=== PATIENT | female | born 1990 | race Caucasian/White ===

== ENCOUNTER 2019-07-25 16:15 | Emergency (ER) | payer OTHER, SELFPAY ==
[2019-07-25 16:48] VITALS: BP 122/66; PULSE 80; RESP 16; TEMP 36.6; O2SAT 100
--- NOTE | 2019-07-25 17:40 | ED.URI ---
HPI - URI/Sore Throat General Chief Complaint: Upper Respiratory Infection Stated Complaint: sinus infection and migraine Time Seen by Provider: 07/25/19 17:32 Source: patient and RN notes reviewed Mode of arrival: ambulatory Limitations: no limitations History of Present Illness HPI Narrative: Patient presents today with a 2-day history of sinus pressure, frontal headache, postnasal drip with white/clear nasal drainage. Denies shortness of breath, fever, cough. No history of asthma or COPD. Currently rates her headache 6/10 and has tried no medication for symptoms prior to arrival. She is a non-smoker. She did receive flu vaccine. MD elicited complaint: nasal congestion Related Data Home Medications Medication Instructions Recorded Confirmed dicyclomine 20 mg PO QID 07/25/19 07/25/19 norethindrone-e.estradiol-iron 1 tablet PO DAILY PRN 07/25/19 07/25/19 [06/27 (28)] Allergies Allergy/AdvReac Type Severity Reaction Status Date / Time No Known Allergies Allergy Verified 07/25/19 17:14 Review of Systems Review of Systems: Narrative: CONSTITUTIONAL: Denies body aches, fever, chills, or sweats. EYES: Denies visual changes, redness, or discharge. ENT: Denies rhinorrhea, sore throat, or otalgia.+Nasal congestion, sinus pressure, Postnasal drip CARDIOVASCULAR: Denies chest pain, palpitations, or edema. RESPIRATORY: Denies cough or dyspnea. GASTROINTESTINAL: Denies abdominal pain, nausea, vomiting, or diarrhea. GENITOURINARY: Denies dysuria or hematuria. SKIN: Denies rash, itching, or wounds. MUSCULOSKELETAL: Denies back pain, joint pain, or myalgia. NEUROLOGIC: Denies numbness, tingling, or weakness.+Headache PSYCH: Denies depression or anxiety. PMFSH Comments At time of signature, I have reviewed and agree with nursing past medical, surgical, social and family history unless otherwise noted. Please see nursing chart for further information. There is no relevant family history pertinent to the presenting complaint Exam Narrative: Exam Narrative: GENERAL: Well-appearing, well-nourished, and in no acute distress. HEAD: Normocephalic, atraumatic. EYES: EOMI. No redness or drainage. Conjunctivae normal. ENT: Mucous membranes pink and moist. Nares Congested. No rhinorrhea. TMs normal bilaterally. Throat normal. Uvula midline. NECK: Normal AROM. Supple. No lymphadenopathy. CHEST: No respiratory distress. Clear to auscultation. HEART: Regular rate and rhythm. No murmur appreciated. Normal peripheral pulses. EXTREMITIES: Normal range of motion. No edema. SKIN: Warm, dry, no rash. NEURO: No focal deficits. Alert and oriented x3. Gait steady. PSYCH: Normal affect. No signs of depression or anxiety. Course Vital Signs Vital signs: Vital Signs Temperature 97.9 F 07/25/19 16:48 Pulse Rate 80 07/25/19 16:48 Respiratory Rate 16 07/25/19 16:48 Blood Pressure 122/66 07/25/19 16:48 Pulse Oximetry 100 07/25/19 16:48 Temperature 97.9 F 07/25/19 16:48 Pulse Rate 80 07/25/19 16:48 Respiratory Rate 16 07/25/19 16:48 Blood Pressure 122/66 07/25/19 16:48 Pulse Oximetry 100 07/25/19 16:48 Reviewed. Pt has been instructed to follow up with her PCP regarding her elevated blood pressure today. MDM - URI/Sore Throat Differential Diagnosis Differential diagnosis: Likely upper respiratory infection, otitis media, sinusitis and viral infection Critical Care Time Critical Care Time Critical Care Time: No Discharge Plan Discharge Clinical Impression: Upper respiratory infection Qualifiers: URI type: unspecified URI Qualified Code(s): J06.9 - Acute upper respiratory infection, unspecified Patient Disposition: Home, Self-Care Condition: Stable Instructions: Upper Respiratory Infection (DC) Additional Instructions: Your symptoms are likely due to a viral illness, which is not treated with antibiotics. Virus symptoms can last for up to 10-14 days. Take Aleve or ib
== END 2019-07-25 17:45 | disposition home or self-care (01) ==
PROVIDERS: Emergency Provider Nurse Practitioner
DX: J06.9 Acute upper respiratory infection, unspecified (principal)
CPT/HCPCS: 99213; G0463

== ENCOUNTER 2019-08-17 18:59 | Emergency (ER) | payer OTHER, SELFPAY ==
[2019-08-17 19:10] VITALS: BP 126/72; PULSE 48; RESP 16; TEMP 37.3; O2SAT 100
--- NOTE | 2019-08-17 19:24 | ED.URI ---
HPI - URI/Sore Throat General Chief Complaint: Upper Respiratory Infection Stated Complaint: sore throat Time Seen by Provider: 08/17/19 19:24 Source: patient and family History of Present Illness HPI Narrative: Patient presents with sinus drainage congestion bilateral ear pressure and sore throat for the past 2 days. No trouble swallowing no drooling. Patient states she has not taken thing [id number] for symptoms patient states she is a normally healthy individual. MD elicited complaint: sore throat and nasal congestion Related Data Home Medications Medication Instructions Recorded Confirmed norethindrone-e.estradiol-iron 1 tablet PO DAILY PRN 07/25/19 08/17/19 [06/27 (28)] Allergies Allergy/AdvReac Type Severity Reaction Status Date / Time No Known Allergies Allergy Verified 07/25/19 17:14 Review of Systems Review of Systems: Narrative: CONSTITUTIONAL: Denies chills, or sweats. Reports fever and generalized body aches EYES: Denies visual changes, redness, or discharge. ENT: Denies otalgia. Reports nasal congestion runny nose and sore throat CARDIOVASCULAR: Denies chest pain, palpitations, or edema. RESPIRATORY: Denies dyspnea. Reports occasional cough GASTROINTESTINAL: Denies abdominal pain, nausea, vomiting, or diarrhea. GENITOURINARY: Denies dysuria or hematuria. SKIN: Denies rash or itching. MUSCULOSKELETAL: Denies back pain, joint pain, or myalgia. Reports generalized body aches NEUROLOGIC: Denies headache, numbness, or weakness. PSYCHIATRIC: Denies anxiety or depression. PMFSH Comments At time of signature, agree with nursing past medical, surgical, social and family history. There is no relevant family history pertinent to the presenting complaint Exam Narrative: Exam Narrative: The patient is a well-developed, well-nourished in no acute distress. SKIN: Skin is warm and dry without erythema, swelling or exudate. There is good turgor. No tenting. HEAD: Atraumatic. Normocephalic. No temporal or scalp tenderness. EYES: Moist and bright. Sclera and conjunctivae normal. No discharge. PERRLA. Extraocular motions intact. Gross visual acuity intact. EARS: Pinna is normal shape and contour. Clear external auditory canals. TM pearly castillo with good cone of light, no erythema or suppuration. Bilateral cerumen noted no gross hearing deficit. NOSE: pink, moist mucosa with good air movement. Clear rhinorrhea without nasal flaring. Septum midline. Mouth: moist mucous membranes. THROAT; mild erythema noted to posterior oropharynx with moderate postnasal drainage. Without exudate or ulceration.. Uvula midline. Normal movement of soft palate. NECK: Supple and nontender with full range of motion without discomfort. No meningeal signs. LUNGS: Equal and bilateral breath sounds without wheezes, rales or rhonchi. CHEST: The chest wall is without retractions or use of accessory muscles. HEART: Has a regular rate and rhythm without murmur, gallops, click or rub. ABDOMEN: Soft, nontender with positive active bowel sounds. No rebound tenderness. EXTREMITIES: Without cyanosis, clubbing or edema. Equal 2+ distal pulses and 2 second capillary refill noted. NEUROLOGIC: alert, active, . The patient moves all extremities with normal muscle strength. Normal muscle tone is noted. Normal coordination is noted. NO focal neurological findings noted. Course Vital Signs Vital signs: Vital Signs Temperature 37.3 C 08/17/19 19:10 Pulse Rate 48 L 08/17/19 19:10 Respiratory Rate 16 08/17/19 19:10 Blood Pressure 126/72 08/17/19 19:10 Pulse Oximetry 100 08/17/19 19:10 Temperature 37.3 C 08/17/19 19:10 Pulse Rate 48 L 08/17/19 19:10 Respiratory Rate 16 08/17/19 19:10 Blood Pressure 126/72 08/17/19 19:10 Pulse Oximetry 100 08/17/19 19:10 PULSE RECHECKED MANUALLY 68 AND REGULAR MDM - URI/Sore Throat Differential Diagnosis Differential diagnosis: Likely upper respiratory infection, otitis media,
[2019-08-17 19:40] VITALS: PULSE 58
== END 2019-08-17 19:40 | disposition home or self-care (01) ==
PROVIDERS: Emergency Provider Nurse Practitioner Family
DX: J02.9 Acute pharyngitis, unspecified (principal)
CPT/HCPCS: 87081; 87880; 99213; G0463

== ENCOUNTER 2020-03-28 09:15 | Emergency (ER) | payer OTHER, SELFPAY ==
[2020-03-28 09:19] VITALS: BP 111/66; PULSE 69; RESP 16; TEMP 37.1; O2SAT 99
--- NOTE | 2020-03-28 09:47 | ED.URI ---
HPI - URI/Sore Throat General Chief Complaint: Upper Respiratory Infection Stated Complaint: sore throat/rib pain/body aches/cough/runny nose Time Seen by Provider: 03/28/20 09:47 Source: patient History of Present Illness HPI Narrative: Patient presents with runny nose nasal congestion, scratchy throat, body aches, increased fatigue. Patient states her symptoms came out of the blue yesterday. Patient denies any shortness of breath no chest pain. Related Data Home Medications Medication Instructions Recorded Confirmed norethindrone-e.estradiol-iron 1 tablet PO DAILY PRN 07/25/19 03/28/20 [06/27 (28)] Allergies Allergy/AdvReac Type Severity Reaction Status Date / Time No Known Allergies Allergy Verified 03/28/20 09:37 Review of Systems Review of Systems: Narrative: CONSTITUTIONAL: Denies chills, or sweats. Reports fever and generalized body aches EYES: Denies visual changes, redness, or discharge. ENT: Denies otalgia. Reports nasal congestion runny nose and sore throat CARDIOVASCULAR: Denies chest pain, palpitations, or edema. RESPIRATORY: Denies dyspnea. Reports occasional cough GASTROINTESTINAL: Denies abdominal pain, nausea, vomiting, or diarrhea. GENITOURINARY: Denies dysuria or hematuria. SKIN: Denies rash or itching. MUSCULOSKELETAL: Denies back pain, joint pain, or myalgia. Reports generalized body aches NEUROLOGIC: Denies headache, numbness, or weakness. PSYCHIATRIC: Denies anxiety or depression. PMFSH Comments At time of signature, agree with nursing past medical, surgical, social and family history. There is no relevant family history pertinent to the presenting complaint Exam Narrative: Exam Narrative: The patient is a well-developed, well-nourished in no acute distress. SKIN: Skin is warm and dry without erythema, swelling or exudate. There is good turgor. No tenting. HEAD: Atraumatic. Normocephalic. No temporal or scalp tenderness. EYES: Moist and bright. Sclera and conjunctivae normal. No discharge. PERRLA. Extraocular motions intact. Gross visual acuity intact. EARS: Pinna is normal shape and contour. Clear external auditory canals. TM pearly castillo with good cone of light, no erythema or suppuration. Bilateral cerumen noted no gross hearing deficit. NOSE: pink, moist mucosa with good air movement. Clear rhinorrhea without nasal flaring. Septum midline. Mouth: moist mucous membranes. THROAT; mild erythema noted to posterior oropharynx with moderate postnasal drainage. Without exudate or ulceration.. Uvula midline. Normal movement of soft palate. NECK: Supple and nontender with full range of motion without discomfort. No meningeal signs. LUNGS: Equal and bilateral breath sounds without wheezes, rales or rhonchi. CHEST: The chest wall is without retractions or use of accessory muscles. HEART: Has a regular rate and rhythm without murmur, gallops, click or rub. ABDOMEN: Soft, nontender with positive active bowel sounds. No rebound tenderness. EXTREMITIES: Without cyanosis, clubbing or edema. Equal 2+ distal pulses and 2 second capillary refill noted. NEUROLOGIC: alert, active, . The patient moves all extremities with normal muscle strength. Normal muscle tone is noted. Normal coordination is noted. NO focal neurological findings noted. Course Vital Signs Vital signs: Vital Signs Temperature 37.1 C 03/28/20 09:19 Pulse Rate 69 03/28/20 09:19 Respiratory Rate 16 03/28/20 09:19 Blood Pressure 111/66 03/28/20 09:19 Pulse Oximetry 99 03/28/20 09:19 Temperature 37.1 C 03/28/20 09:19 Pulse Rate 69 03/28/20 09:19 Respiratory Rate 16 03/28/20 09:19 Blood Pressure 111/66 03/28/20 09:19 Pulse Oximetry 99 03/28/20 09:19 MDM - URI/Sore Throat Differential Diagnosis Differential diagnosis: Likely upper respiratory infection, croup, otitis media, sinusitis, viral infection, bronchitis, influenza, pharyngitis and other (COVID-19) Critical Care Time Critical
== END 2020-03-28 10:00 | disposition home or self-care (01) ==
PROVIDERS: Emergency Provider Nurse Practitioner Family; PCP Nurse Practitioner Adult Health
DX: J06.9 Acute upper respiratory infection, unspecified (principal); Z20.828 Contact with and (suspected) exposure to other viral communicable diseases
CPT/HCPCS: 99211; G0463

== ENCOUNTER 2020-03-29 06:53 | Outpatient (NON) | payer OTHER, SELFPAY ==
[2020-03-29 21:43] LABS: SARS-CoV-2 RNA PCR Negative
== END 2020-03-29 06:54 ==
PROVIDERS: Visit Provider Nurse Practitioner Family
DX: Z20.828 Contact with and (suspected) exposure to other viral communicable diseases (principal)
CPT/HCPCS: 87635; C9803; U0003

== ENCOUNTER 2020-10-04 14:25 | Emergency (ER) | payer OTHER, SELFPAY ==
[2020-10-04 14:30] VITALS: BP 110/60; PULSE 16; RESP 16; TEMP 37.3; O2SAT 100
--- NOTE | 2020-10-04 14:31 | ED.URI ---
HPI - URI/Sore Throat General Chief Complaint: Upper Respiratory Infection Stated Complaint: sore throat headache Time Seen by Provider: 10/04/20 14:31 Source: patient and RN notes reviewed History of Present Illness HPI Narrative: Patient is a 30-year-old female who presents the urgent care with complaints of sore throat and intermittent headaches. Patient states that she woke up at 6 AM with a severe sore throat and painful swallowing. Patient has not taken anything [id number] for her symptoms. Denies of any fever, nausea, vomiting, exposure to strep, flu or Covid. Patient states that she has an [id number] child and wants to make sure that she does not have strep . No other acute complaints. No acute distress noted. Patient aware of the plan of care. Some parts of this dictation were generated by voice recognition software and may contain typographical and/or grammatical inaccuracies. Related Data Home Medications Medication Instructions Recorded Confirmed citalopram 20 mg PO DAILY 10/04/20 10/04/20 norethindrone-e.estradiol-iron 1 tablet PO DAILY 10/04/20 10/04/20 [[place]uro[place] Fe 1-20 (28)] Allergies Allergy/AdvReac Type Severity Reaction Status Date / Time No Known Allergies Allergy Verified 10/04/20 14:38 Review of Systems Review of Systems: Narrative: CONSTITUTIONAL: Denies fever, chills, or sweats. EYES: Denies visual changes, redness, or discharge. ENT: Reports of sore throat CARDIOVASCULAR: Denies chest pain, palpitations, or edema. RESPIRATORY: Denies cough or dyspnea. GASTROINTESTINAL: Denies abdominal pain, nausea, vomiting, or diarrhea. GENITOURINARY: Denies dysuria or hematuria. SKIN: Denies rash or itching. MUSCULOSKELETAL: Denies back pain, joint pain, or myalgia. NEUROLOGIC: Reports of intermittent headache All other systems reviewed are negative, except as documented in HPI. PMFSH Comments At the time of my signature, I reviewed and agree with the nursing past medical, surgical, social, and family history. There is no relevant family history pertinent to the patient complaint. Exam Narrative: Exam Narrative: GENERAL: This is a well-nourished, well-developed patient, in no apparent distress. HEAD: normocephalic, atraumatic. EYES: PERRL. Sclera clear/white. Vision is grossly intact. EARS: External ears normal, auditory canals clear and without drainage, TMs normal without perforation. Hearing grossly intact. NOSE: External nose normal with no obvious nasal discharge, nares without redness, no rhinorrhea. THROAT: Mucous membranes moist, mild to moderate erythema noted posterior oropharynx with mild left tonsillar erythema/edema without exudate or ulceration NECK: Neck supple, non-tender without lymphadenopathy CARDIOVASCULAR: Regular rate and rhythm without murmurs, gallops, or rubs. RESPIRATORY: Clear to auscultation. Breath sounds equal bilaterally. No wheezes, rales, or rhonchi. SKIN: warm, intact with no suspicious lesions or rash, good texture and turgor. NEURO: awake, alert, and oriented to person, place and time. There were no obvious focal neurologic abnormalities. EXTREMITIES: No clubbing, cyanosis, or edema. Course Vital Signs Vital signs: Vital Signs Temperature 99.2 F 10/04/20 14:30 Pulse Rate 16 L 10/04/20 14:30 Respiratory Rate 16 10/04/20 14:30 Blood Pressure 110/60 10/04/20 14:30 Pulse Oximetry 100 10/04/20 14:30 Temperature 99.2 F 10/04/20 14:30 Pulse Rate 16 L 10/04/20 14:30 Respiratory Rate 16 10/04/20 14:30 Blood Pressure 110/60 10/04/20 14:30 Pulse Oximetry 100 10/04/20 14:30 Reviewed MDM - URI/Sore Throat MDM Narrative Medical decision making narrative: Reviewed lab results with the patient. She is aware that strep swab was negative. Educated patient on culture we will call within 72 hours if culture is positive and antibiotics are necessary. Advised the patient to use an [id number] antihistamine such as Claritin o
== END 2020-10-04 14:54 | disposition home or self-care (01) ==
PROVIDERS: Emergency Provider Nurse Practitioner Family; PCP Nurse Practitioner Adult Health
DX: J02.9 Acute pharyngitis, unspecified (principal); F41.9 Anxiety disorder, unspecified
CPT/HCPCS: 87081; 87880; 99213; G0463

== ENCOUNTER 2021-12-30 09:40 | Emergency (ER) | payer OTHER, SELFPAY ==
[2021-12-30 09:46] VITALS: BP 100/59; PULSE 58; RESP 16; TEMP 36.9; O2SAT 100
--- NOTE | 2021-12-30 10:59 | ED.URI ---
HPI - URI/Sore Throat General Chief Complaint: Upper Respiratory Infection Stated Complaint: Runny nose, feeling of vomiting, headache Time Seen by Provider: 12/30/21 11:01 Source: patient, RN notes reviewed and old records reviewed Mode of arrival: ambulatory Limitations: no limitations History of Present Illness HPI Narrative: 31 year old female who presents to [facility] care with complaints of congestion, headache, cough, runny nose and sneezing with some nausea and fatigue since yesterday.Patient has not been COVID or influenza vaccinated and is concerned of possible exposure to COVID at work. Patient denies any fevers, chills or body aches, denies any shortness of breath. MD elicited complaint: cough and other (headache, fatigue) Onset (ago): day(s) (1) Treatments prior to arrival: acetaminophen Related Data Home Medications Medication Instructions Recorded Confirmed norethindrone 1 mg-ethinyl 1 tablet DIRECTED 12/30/21 12/30/21 estradiol 20 mcg (21)-iron 75 mg (7) tablet ([place] Fe 06/27 (28)) Allergies Allergy/AdvReac Type Severity Reaction Status Date / Time No Known Allergies Allergy Verified 10/04/20 14:38 Review of Systems Review of Systems: CONSTITUTIONAL: Denies fever, chills, or sweats. EYES: Denies visual changes, redness, or discharge. ENT: positive for rhinorrhea, congestion,no sore throat, or otalgia. CARDIOVASCULAR: Denies chest pain, palpitations, or edema. RESPIRATORY: Positive for cough no dyspnea. GASTROINTESTINAL: Denies abdominal pain,reports some nausea,no vomiting, or diarrhea. GENITOURINARY: Denies dysuria or hematuria. SKIN: Denies rash or itching. MUSCULOSKELETAL: Denies back pain, joint pain, or myalgia. NEUROLOGIC: Positive for headache,no numbness, or weakness, reports fatigue. PSYCHIATRIC: reports history of anxiety or depression. All systems reviewed & are unremarkable except as noted in HPI and below PMFSH Past Medical History Medical History (Updated 12/31/21 @ 23:13 by Tiana Bergman NP) Anxiety Colitis Surgical History Surgical History (Updated 12/31/21 @ 23:10 by Tiana Bergman NP) History of placement of ear tubes Social History Social History (Updated 12/31/21 @ 23:11 by Tiana Bergman NP) Smoking status: Never smoker Alcohol intake: current Alcohol use details: social Substance use: never Living arrangements: with family Gender identity (if verbalized by the patient): Female Comments At time of signature, agree with nursing past medical, surgical, social and family history. There is no relevant family history pertinent to the presenting complaint Exam Narrative: GENERAL: ill-appearing, well-nourished, and in no acute distress. HEAD: Normocephalic, atraumatic. EYES: PERRLA and EOMI. ENT: Nares with minimal redness, clear rhinorrhea no epistaxis. Mucous membranes moist.TM's normal with good light reflex, throat pink with no lesions or exudates, no tonsil swelling. NECK: Supple.no lymphadenopathy CHEST: Clear to auscultation. No respiratory distress.SAO2 100% on room air, no tachypnea or dyspnea HEART: Regular rate and rhythm. No murmur heard. Normal peripheral pulses. ABDOMEN: Soft, nontender, nondistended, normal active bowel sounds. EXTREMITIES: Normal range of motion. No edema. SKIN: Warm, dry, no rash. NEURO: No focal deficits. Alert and oriented x3. Course Course Level of Care: Express Care Visit Vital Signs Vital signs: Vital Signs Temperature 36.9 C 12/30/21 09:46 Pulse Rate 58 L 12/30/21 09:46 Respiratory Rate 16 12/30/21 09:46 Blood Pressure 100/59 L 12/30/21 09:46 Pulse Oximetry 100 12/30/21 09:46 Oxygen Delivery Room Air 12/30/21 09:46 Temperature 36.9 C 12/30/21 09:46 Pulse Rate 58 L 12/30/21 09:46 Respiratory Rate 16 12/30/21 09:46 Blood Pressure 100/59 L 12/30/21 09:46 Pulse Oximetry 100 12/30/21 09:46 Oxygen Delivery Room Air 12/30/21 09:46 MDM - URI/Sore
[2021-12-30 20:18] LABS: SARS-CoV-2 RNA PCR Negative
== END 2021-12-30 11:53 | disposition home or self-care (01) ==
PROVIDERS: Emergency Provider Registered Nurse
DX: J06.9 Acute upper respiratory infection, unspecified (principal); Z20.822 Contact with and (suspected) exposure to COVID-19
CPT/HCPCS: 87426; 87804; 99213; C9803; G0463; U0003; U0005

== ENCOUNTER 2022-04-16 18:28 | Emergency (ER) | payer OTHER, SELFPAY ==
--- NOTE | 2022-04-16 18:29 | ED.URI ---
HPI - URI/Sore Throat General Chief Complaint: Upper Respiratory Infection Stated Complaint: migrane, nausea, vomiting Time Seen by Provider: 04/16/22 18:30 Source: patient History of Present Illness HPI Narrative: Patient is a 31-year-old female who presents to the Urgent Care with complaints of bad headache, nausea and vomiting. Patient states that she has had some nausea with her , she is 13 weeks . Patient has been using Zofran as prescribed by her doctor. Patient states the headache and body aches started 2 days ago. Denies any fevers or known exposures. Patient has been taking Tylenol for the headache. No other acute complaints. No acute distress noted. Patient aware of the plan of care. Some parts of this dictation were generated by voice recognition software and may contain typographical and/or grammatical inaccuracies. Related Data Home Medications Medication Instructions Recorded Confirmed vitamin-ferrous fumarate 1 tablet PO DAILY 04/16/22 04/16/22 28 mg iron-folic acid 800 mcg tablet ( Tablet) Allergies Allergy/AdvReac Type Severity Reaction Status Date / Time No Known Allergies Allergy Verified 04/16/22 18:48 Review of Systems Review of Systems: CONSTITUTIONAL: Denies fever, chills, or sweats. EYES: Denies visual changes, redness, or discharge. ENT: reports rhinorrhea, otalgia, congestion and sore throat CARDIOVASCULAR: Denies chest pain, palpitations, or edema. RESPIRATORY: Denies cough or dyspnea. GASTROINTESTINAL: Denies abdominal pain, nausea, vomiting, or diarrhea. GENITOURINARY: Denies dysuria or hematuria. SKIN: Denies rash or itching. MUSCULOSKELETAL: Denies back pain, joint pain. Reports of body aches NEUROLOGIC: reports of headache All other systems reviewed are negative, except as documented in HPI. [facility] Past Medical History Medical History (Updated 04/16/22 @ 19:02 by BONNIE Lambert) Anxiety Colitis Surgical History Surgical History (Updated 12/31/21 @ 23:10 by Tiana Bergman NP) History of placement of ear tubes Social History Social History (Updated 12/31/21 @ 23:11 by Tiana Bergman NP) Smoking status: Never smoker Alcohol intake: current Alcohol use details: social Substance use: never Gender identity (if verbalized by the patient): Female Comments At the time of my signature, I reviewed and agree with the nursing past medical, surgical, social, and family history. There is no relevant family history pertinent to the patient complaint. Exam Narrative: GENERAL: This is a well-nourished, well-developed patient; appears fatigued HEAD: normocephalic, atraumatic. EYES: PERRL. Sclera clear/white. Vision is grossly intact. EARS: External ears normal, auditory canals clear and without drainage, TMs normal without perforation. Hearing grossly intact. NOSE: External nose normal with no obvious nasal discharge, nares without redness, no rhinorrhea. THROAT: Mucous membranes moist, mild erythema of the posterior oropharynx with moderate postnasal drainage. NECK: Neck supple, non-tender without lymphadenopathy, masses or thyromegaly. CARDIOVASCULAR: Regular rate and rhythm without murmurs, gallops, or rubs. RESPIRATORY: Clear to auscultation. Breath sounds equal bilaterally. No wheezes, rales, or rhonchi. GASTROINTESTINAL: Abdomen soft, non-tender, nondistended. SKIN: warm, intact with no suspicious lesions or rash, good texture and turgor. NEURO: awake, alert, and oriented to person, place and time. There were no obvious focal neurologic abnormalities. EXTREMITIES: No clubbing, cyanosis, or edema. Course Course Level of Care: Express Care Visit Vital Signs Vital signs: Vital Signs Temperature 99.4 F 04/16/22 18:32 Pulse Rate 79 04/16/22 18:32 Respiratory Rate 16 04/16/22 18:32 Blood Pressure 106/58 L 04/16/22 18:32 Pulse Oximetry 100 04/16/22 18:32 Oxygen Delivery Room A
[2022-04-16 18:32] VITALS: BP 106/58; PULSE 79; RESP 16; TEMP 37.4; O2SAT 100
== END 2022-04-16 19:05 | disposition home or self-care (01) ==
PROVIDERS: Emergency Provider Nurse Practitioner Family
DX: O98.511 Other viral diseases complicating pregnancy, first trimester (principal); Z3A.13 13 weeks gestation of pregnancy; B34.9 Viral infection, unspecified
CPT/HCPCS: 81003; 87081; 87804; 87880; 99213; G0463